=== PATIENT | male | born 1965 | race Caucasian/White ===

== ENCOUNTER 2024-10-08 14:05 | Emergency (ER) | payer BC, SELFPAY ==
[2024-10-08 14:21] VITALS: BP 173/89
--- NOTE | 2024-10-08 15:13 | ED.GENMED ---
History of Present Illness
General
Chief Complaint: Abdominal Pain
Source: patient
Exam Limitations: none
Time Seen by Provider: 10/08/24 15:08
Nursing documentation reviewed up to this point in time: agreed with
History of Present Illness
History of Present Illness:
Patient to ED with known umbilical hernia. States he reduces hernia daily, sometimes more than once daily. Today he was unable to reduce it at home. Brought to ED by spouse for eval. Denies fever/chills. +nausea, increasing pain.
Past History
Past History
ED Past Medical History: None
Review of Systems
Review of Systems
Allergies reviewed?: Yes
All Other Systems: ROS reviewed and negative except as documented in HPI and ROS
Constitutional: Reports no symptoms
EENT: Reports no symptoms
Respiratory: Reports no symptoms
Cardiac: Reports no symptoms
ABD/GI: Reports abdominal pain and other (umbilical hernia)
: Reports no symptoms
Musculoskeletal: Reports no symptoms
Skin: Reports no symptoms
Neurological: Reports no symptoms
Psychiatric: Reports no symptoms
Phy Exam
General Physical Exam
General Presentation: mild distress
General age: appears stated age
General Skin: warm and dry
General Habitus: normal
General Mental: alert
Cardiovascular Exam
Cardiovascular Exam: regular rate/rhythm and no edema
Gastrointestinal Exam
Gastrointestinal Exam: normal bowel sounds, soft, no organomegaly, no pulsatile mass, non distended, no cva tenderness and other (umbilical hernia)
Musculoskeletal Exam
Musculoskeletal Exam: full ROM
Skin Exam
Skin Exam: normal color, warm/dry and no rash
Psychiatric Exam
Psychiatric Exam: normal mood/affect
Course
Orders/Labs/Results
Orders:
Orders
10/08/24 15:12
HYDROmorphone [Dilaudid] 1 mg IV NOW STA
Ondansetron Injectable [Zofran] 4 mg IV NOW STA
10/08/24 15:29
Complete Blood Count/With Diff Urgent
Comprehensive Metabolic Panel Urgent
Abnormal Lab Results
10/08/24
15:29
Absolute Neuts (auto) 7.2 H 10^3/uL
(1.4-6.5)
Neutrophils % 79.4 H %
(42.2-75.2)
Lymphocytes % 14.1 L %
(20.5-51.1)
Chloride 108 H mmol/L
(98-107)
Glucose 115 H mg/dl
(70-99)
10/08/24 15:29
10/08/24 15:29
Vital Signs
Initial and Last Documented VS:
Initial Vital Signs
Temp Pulse Resp BP Pulse Ox
97.5 F 60 18 173/89 98
10/08/24 14:21 10/08/24 14:21 10/08/24 14:21 10/08/24 14:21 10/08/24 14:21
Last Documented Vital Signs
Temp Pulse Resp BP Pulse Ox
97.5 F 60 18 132/79 95
10/08/24 14:21 10/08/24 14:21 10/08/24 14:21 10/08/24 16:00 10/08/24 16:15
*Pulse Oximetry
SaO2: 98
Oxygen Mode of Delivery: Room air
Patient hypoxic: no
*Critical Care Note
Total Time (30-74mins, 75-104mins- exclusive of procedures): Not Applicable
Update Note
Update Note:
Patient to ED with painful umbilical hernia that he was unable to reduce at home. Given 1mg dilaudid and hernia reduced bedside without difficulty. Abdomen remains soft. No skin changes noted at hernia site. Placed in Abdominal binder. Labs
reviewed, no concerning findings. Will discharge home, follow up with general surgery. Given instructions on s/s to return to ED and he is agreeable to plan.
ED Attending Note
-
Portions of this chart may have been created with voice recognition software.� Occasional wrong word or��sound alike� substitutions may have occurred due to the inherent limitations of voice recognition software.
Discharge Plan
Departure
Patient Disposition: Home (Routine Discharge)
Date of Disposition: 10/08/24
Time of Disposition: 16:35
Patient with high blood pressure during this ER visit?: No
Condition: Good
Covid-19: Not Applicable
Discharge Problem:
Hernia, umbilical
Instructions: Abdominal wall hernias, Using an abdominal binder
Prescriptions:
No Action
celecoxib 200 MG capsule
200 mg PO DAILY Qty: 14 0RF
Rx Instructions:
daily x 14 days then stop
prochlorperazine maleate 5 MG tablet
5 mg PO Q6HPRN PRN (Reason: n/v) Qty: 15 1RF
oxycodone 10 MG tablet
10 mg PO Q4H Qty: 50 0RF
Rx Instructions:
1/2 tab moderate pain or 1 full tab if pain severe
acetaminophen 325 MG tablet
650 mg PO QID Qty: 0 0RF
Rx Instructions:
standing order
aspirin 325 MG tablet,delayed release (DR/EC)
325 mg PO DAILY Qty: 0 0RF
Rx Instructions:
x 4-6 weeks until d/c by surgeon
docusate sodium 100 MG capsule
100 mg PO BID Qty: 0 0RF
Rx Instructions:
while on pain meds
sennosides [senna] 1 TABLET tablet
2 tab PO BID Qty: 0 0RF
Rx Instructions:
while on pain meds
magnesium hydroxide 30 ML suspension
30 ml PO HSPRN PRN (Reason: constipation) Qty: 0 0RF
Referrals:
Cordell Ly MD [Active, [facility]] - Call in 1-3 days for appt
Lisgar,Andrzej N., DO [Family Provider, Family Practice]
Activity Restrictions/Additional Instructions:
Return to the emergency department immediately for fever/chills, increasing abominal pain, vomiting, skin changes at hernia site, inabilty to reduce hernia on own, or for any further concerns.
Interventions
Interventions:
*Risk Screen - Suicide Last Done: 10/08/24 14:21
*General Assessment Last Done: 10/08/24 14:21
*Neglect/Abuse Screening Last Done: 10/08/24 14:21
*ED- Fall Risk Assessment Last Done: 10/08/24 15:36
*ED COVID-19 Vaccine History Last Done: 10/08/24 15:36
VM-Tjgnvp-Rvihfzpojx Assessment Last Done: 10/08/24 15:38
Discharge Date and Time
Print Language: SERBIAN
[2024-10-08] MEDS: ZOFRAN 4 MG IV (15:32)
[2024-10-08] MEDS: DILAUDID 1 MG IV (15:32)
[2024-10-08 15:36] VITALS: BMI 28.7
[2024-10-08 15:38] VITALS: BP 145/92
[2024-10-08 15:47] LABS: Hematocrit 45.8 % (39.0-52.0); Hemoglobin 16.0 g/dL (13.0-18.0); Mean Corp Hgb Conc. 34.9 g/dL (33.0-37.0); Mean Corpuscular Volume 86.7 fL (80.0-94.0); Nucleated Red Blood Cells % 0 % (-); Platelet Count 206 10^3/uL (130-400); Red Cell Dist. Width 13.0 % (11.5-14.5)
[2024-10-08 16:00] VITALS: BP 132/79
[2024-10-08 16:03] LABS: ALT (SGPT) 37 U/L (0-50); AST (SGOT) 29 U/L (17-59); Albumin 4.5 g/dl (3.5-5.0); Alkaline Phosphatase 75 U/L (38-126); Blood Urea Nitrogen 18 mg/dl (9-20); Calcium 9.5 mg/dl (8.4-10.2); Carbon Dioxide 28 mmol/L (22-30); Chloride 108 mmol/L (98-107); Estimated Creatinine Clearance 91 ml/min; Glucose 115 mg/dl (70-99); Potassium 3.8 mmol/L (3.5-5.1); Sodium 143 mmol/L (135-145); Total Protein 7.0 g/dl (6.3-8.2); eGFR > 60.00
== END 2024-10-08 16:49 | disposition home or self-care (01) ==
LOC: EMR 14:05
PROVIDERS: Nurse Practitioner; EMERGENCY PHYSICIAN Student in an Organized Health Care Education/Training Program; FAMILY PHYSICIAN Family Medicine
DX: K42.9 Umbilical hernia without obstruction or gangrene (principal); R11.0 Nausea; M19.90 Unspecified osteoarthritis, unspecified site; Z79.82 Long term (current) use of aspirin; Z85.820 Personal history of malignant melanoma of skin
CPT/HCPCS: 99284; 96374; 96375; 80053; 85025

== ENCOUNTER 2024-11-21 06:22 | Day surgery (SDC) | payer BC, SELFPAY ==
[2024-11-07 14:01] VITALS: BMI 27.6
[2024-11-21] VITALS (9 sets, daily range): BP systolic 128–149; BP diastolic 71–93; BMI 27.6
[2024-11-21] MEDS: TYLENOL 1000 MG PO (12:43)
[2024-11-21] MEDS: NORMOSOL-R/PLASMALYTE-A 1000 IV (12:44)
[2024-11-21] MEDS: HEPARIN 5000 UNITS SC (13:10)
--- NOTE | 2024-11-21 15:31 | W.IMMPOSTOP ---
Surgical Immed Post Op Note
-
Primary Surgeon: Rosy
Assisting: Franca MAC
Pre-op Diagnosis: Reducible umbilical hernia
Post-op Diagnosis: Reducible umbilical ehrnia + incarcerated ventral incisional hernias
Procedure Performed: Robot assisted laparoscopic repair of umbilical and ventral incisional hernias (rTAPP)
Anesthesia Type: GETA + TAP block
Specimen / Cultures: None
Estimated Blood Loss: 10cc
Complications: None immediate
Operative Findings: Finnish cheese type defects about the umbilicus at site of prior incisions encompassing an area of 3.3cm x 3cm. 15cm x 15cm bard soft mesh
--- NOTE | 2024-11-21 15:33 | OR.RPT ---
Operative Report
Operative Report
Primary Surgeon: Rosy
Assisting: Franca MAC
Pre-op Diagnosis: Reducible umbilical hernia
Post-op Diagnosis: Reducible umbilical ehrnia + incarcerated ventral incisional hernias
Procedure Performed: Robot assisted laparoscopic repair of umbilical and ventral incisional hernias (rTAPP)
Anesthesia Type: GETA + TAP block
Specimen / Cultures: None
Estimated Blood Loss: 10cc
Complications: None immediate
Operative Findings: [place]isian cheese type defects about the umbilicus at site of prior incisions encompassing an area of 3.3cm x 3cm. 15cm x 15cm bard soft mesh
DOS: 11/21/24
Indications:� This 59M developed an incarcerated umbilical hernia. Robot assisted laparoscopic repair was planned.
Description of procedure:� The patient was taken to the operating room and positioned into supine position. The patient�s abdomen was prepped and draped in standard sterile fashion. A time-out was completed verifying correct patient, procedure,
site, positioning, and implants and special equipment prior to beginning this procedure.� A stab incision was made in the left upper quadrant, a Veress needle was inserted and proper position was confirmed by aspiration and saline drop test.
Following this, pneumoperitoneum was created with insufflation of carbon dioxide to 12 mmHg. Then a 8mm robotic trocar was inserted at the left of anterior axillary line. The laparoscope was inserted and no injuries were identified in the area.
Under direct visualization, two 8mm trocars were placed a hand's breadth inferior to the initial trocar and a hand's breadth inferior to the second trocar in succession.
Attention was turned to the defect. The peritoneum was incised several cm superior to the defect and a peritoneal flap was developed in transverse and caudad directions using blunt and sharp dissection and judicious electrocautery. The defects
measured as above. The defects were closed with 0 PDS stratafix suture. Mesh was passed into the abdomen and centered on the defect and then placed against the underside of the abdominal wall and secured in place with 2-0 vicryl sutures at all four
corners as well as under the defect. The flap was closed over the mesh and secured with 2-0 monocryl stratafix suture. A few small rents in the flap were closed with 2-0 vicryl suture and 2-0 monocryl stratafix suture. A transversus abdominis plane
block was then performed under laparoscopic vision with marcaine/decadron.
After ensuring adequate hemostasis, the trocars were removed and the pneumoperitoneum allowed to escape. The trocar incisions were closed at the skin level using 4-0 monocryl and topical skin adhesive. All counts were correct. The patient tolerated
the procedure well and was taken to the postanesthesia care unit in stable condition.
The assistance of Franca MAC was required due to the complexity of the procedure. During the procedure she assisted with retraction, resection, and closure of the wound.
[2024-11-21] MEDS: DILAUDID 0.25 MG IV ×2 (15:56→16:06)
== END 2024-11-21 17:19 | disposition home or self-care (01) ==
LOC: SDS 06:22
PROVIDERS: ATTENDING PHYSICIAN Surgery; FAMILY PHYSICIAN Family Medicine
DX: K42.0 Umbilical hernia with obstruction, without gangrene (principal); K43.0 Incisional hernia with obstruction, without gangrene
CPT/HCPCS: 49594; 93005; C1781